=== PATIENT | male | born 1965 | race Caucasian/White ===

== ENCOUNTER 2020-08-14 04:52 | Emergency (ER) | payer OTHER ==
[~2020-08-14] VITALS: Ht 188 cm; Wt 117.5 kg
[2020-08-14 05:03] VITALS: Ht 188 cm; Wt 117.5 kg
[2020-08-14 06:15] LABS: BASOPHIL % 0.4 % (0-2); PLATELET COUNT 263 x10^3mcL (130-400); RED CELL DISTRIBUTION WIDTH 13.7 % (11.5-14.5)
[2020-08-14 06:23] LABS: CALCIUM 8.6 mg/dL (8.5-10.1); CARBON DIOXIDE 28.9 mmol/L (21-32); CHLORIDE SERUM 107 mmol/L (98-107); CREATININE SERUM 1.1 mg/dL (0.7-1.3); GFR1 > 60 mL/min; GLUCOSE SERUM 108 mg/dL (74-106); POTASSIUM SERUM 4.3 mmol/L (3.5-5.1); SODIUM SERUM 142 mmol/L (136-145)
[2020-08-14 06:32] LABS: ALBUMIN 3.7 g/dL (3.4-5.0); ALKALINE PHOSPHATASE 94 U/L (46-116); ALT/SGPT 66 U/L (16-63); AST/SGOT 38 U/L (15-37); BILIRUBIN TOTAL 1.2 mg/dL (0.20-1.00); CHOLESTEROL 150 mg/dL (<200); CHOLESTEROL/HDL RATIO 4.3; HDL CHOLESTEROL 35 mg/dL (40-60); TOTAL PROTEIN, SERUM 6.7 g/dL (6.4-8.2); TRIGLYCERIDES 115 mg/dL (<150)
[2020-08-14 06:40] LABS: microscopic required? NO
[2020-08-14 07:19] LABS: UA SPECIFIC GRAVITY >=1.030 (1.005-1.035); urine erythrocyte NEGATIVE (NEGATIVE)
[2020-08-14 07:34] VITALS: BP 142/97
[2020-08-14 07:59] LABS: AMPHETAMINE QUAL UR POSITIVE (See below)
== END 2020-08-14 07:34 | disposition home or self-care (01) ==
LOC: ED 04:52
PROVIDERS: Specialist
DX: M79.671 Pain in right foot (principal); I10 Essential (primary) hypertension; R60.0 Localized edema; F17.210 Nicotine dependence, cigarettes, uncomplicated
CPT/HCPCS: 82962; 83880; 99406; Q0092

== ENCOUNTER 2020-09-09 17:27 | Emergency (ER) | payer OTHER ==
[~2020-09-09] VITALS: Ht 188 cm; Wt 115.7 kg
[2020-09-09 18:04] VITALS: Ht 188 cm; Wt 115.7 kg
[2020-09-09 21:11] VITALS: BP 130/71
== END 2020-09-09 21:12 | disposition home or self-care (01) ==
LOC: ED 17:27
DX: M17.12 Unilateral primary osteoarthritis, left knee (principal); M21.41 Flat foot [pes planus] (acquired), right foot; M20.11 Hallux valgus (acquired), right foot; M79.89 Other specified soft tissue disorders; I10 Essential (primary) hypertension